=== PATIENT | male | born 1960 | race Caucasian/White ===

== ENCOUNTER 2023-01-07 08:58 | Observation (INO) | payer BC ==
[~2023-01-07] VITALS: Ht 177.8 cm; Wt 80.5 kg
[2023-01-07] VITALS (15 sets, daily range): BP systolic 98–139; BP diastolic 59–87; PULSE 57–87; TEMP 97.6–98.5
[2023-01-07 09:23] LABS: BASO # 0.1 K/mm3 (0.0-0.2); BASO % 1.6 % (0.0-2.0); EOS # 0.2 K/mm3 (0.0-0.7); EOS % 4.3 % (0.0-4.0); GRAN # 2.4 K/mm3 (1.4-6.5); HEMATOCRIT 43.2 % (42.0-52.0); HEMOGLOBIN 14.8 g/dl (13.5-18.0); LYMPH # 1.2 K/mm3 (1.2-3.4); LYMPH % 27.7 % (20.0-51.0); MEAN CELL VOLUME 88 fl (80.0-100.0); MEAN CORPUSCULAR HEMOGLOBIN 30 pg (27-31); MEAN CORPUSCULAR HGB CONC 34 g/dl (33.0-37.0); MEAN PLATELET VOLUME 9.3 fl (7.4-10.4); MONO # 0.6 K/mm3 (0.1-0.6); PLATELET COUNT 240 K/mm3 (130-400); RED BLOOD COUNT 4.89 M/mm3 (4.20-5.60); REDCELL DISTRIBUTION WIDTH-CV 12.6 % (11.5-14.5)
[2023-01-07 09:38] LABS: ALBUMIN 3.5 gm/dL (3.4-4.8); BILIRUBIN,TOTAL 0.4 mg/dL (0.2-1.2); CALCIUM 8.8 mg/dL (8.4-10.2); CREATININE, serum 1.08 mg/dL (0.72-1.25); POTASSIUM 3.9 mmol/L (3.5-4.5); TOTAL PROTEIN 6.8 gm/dL (6.2-8.1)
[2023-01-07 09:51] LABS: TROPONIN-I 0.246 ng/mL (0.00-0.033)
[2023-01-07 10:22] LABS: COLLECTION METHOD CLEAN CATCH
[2023-01-07 10:26] LABS: SQUAMOUS EPITHELIAL None Seen /hpf (0-10); URINE BACTERIA None Seen /hpf (NONE SEEN); URINE RBC 0-2 /hpf (0-2)
[2023-01-07 10:26] LABS: INR 1.1 (0.8-3.0); PROTHROMBIN TIME 12.3 SECONDS (9.7-12.8)
[2023-01-07 10:28] LABS: PARTIAL THROMBOPLASTIN TIME 26.2 SECONDS (26.0-37.0)
[2023-01-07 10:36] LABS: URINE APPEARANCE Clear (CLEAR/HAZY); URINE BLOOD Negative (NEGATIVE); URINE COLOR Yellow (YELLOW); URINE GLUCOSE Negative (NEGATIVE); URINE KETONE Negative (NEGATIVE); URINE NITRATE Negative (NEGATIVE); URINE PROTEIN(semi-quant) Negative (NEGATIVE); URINE UROBILINOGEN 0.2 E.U/dL (0.2-1.0)
--- NOTE | 2023-01-07 11:22 | NUR ---
SEE MERGE FOR ALL INTERVENTIONS, MEDICATIONS, AND VITAL SIGNS. HEPARIN GTT STOPPED PRIOR TO PROCEDURE PER PHYSICIAN ORDER.
[2023-01-07] MEDS ORDERED: COZAAR 25MG25 MG/TAB PO (12:33)
[2023-01-07] MEDS ORDERED: HCTZ12.5TAB PO (12:34)
[2023-01-07] MEDS ORDERED: ALLEGRA 60MG TA60 MG PO (12:35)
--- NOTE | 2023-01-07 12:43 | NUR ---
PATIENT ADMITTED TO ROOM 359 FROM TRAVEL NURSE. PATIENT IS ALERT AND ORIENTED X4. DENIES PAIN. LUNGS CTA. SKIN INTACT. IV TO LEFT AC. RADIAL BAND IN PLACE WITH 15CC OF AIR, RADIAL PULSES PALPABLE, NO BLEEDING NOTED. ORIENTED TO ROOM AND USE OF CALL LIGHT. DENIES NEEDS. CALL LIGHT WITHIN REACH.
[2023-01-07 13:52] LABS: MAGNESIUM 2.1 mg/dL (1.6-2.6)
[2023-01-07 14:13] LABS: TSH w REFLEX 2.505 uIU/mL (0.350-4.940)
--- NOTE | 2023-01-07 17:08 | NUR ---
DR. MORE AWARE OF ELEVATED TROP AND EKG REVIEWED. NO FURTHER ORDERS AT THIS TIME. PATIENT DENIES CHEST PAIN.
--- NOTE | 2023-01-07 18:10 | NUR ---
RADIAL BAND REMOVED, NO BLEEDING NOTED, BANDAID APPLIED. PATIENT IN BED, DENIES NEEDS.
[2023-01-08 03:14] VITALS: BP 97/69; PULSE 52; TEMP 97.8
[2023-01-08 07:16] LABS: CHOLESTEROL RISK RATIO 4.7
[2023-01-08 07:30] LABS: TROPONIN-I 3.153 ng/mL (0.00-0.033)
--- NOTE | 2023-01-08 07:43 | NUR ---
Patient sitting in recliner at this time. 0800 assessment completed. Patient denies pain or discomfort. INT to right hand and Left AC. Call light within reach.
[2023-01-08 07:46] VITALS: BP 140/85; PULSE 60; TEMP 98
--- NOTE | 2023-01-08 09:04 | NUR ---
MARIA C met with the patient to discuss discharge plan. The patient lives in [place] with a housemate, Karis Mock. He reports independence with ADLs and does not have any DME. The patient's PCP is Dr. Mayelin Pierre and he obtains his medications from [facility]. The patient does not have a DPOA-HC, but he was interested in obtaining a form. MARIA C provided. The patient shares that he is not , does not have any children, and his parents are . He has three siblings: Bernard Sotelo (ph#[phone]), Sonali, and Dunia. The patient plans to return home with his housemate upon discharge. No additional needs at this time. *Discharge plan: home with housemate*
--- NOTE | 2023-01-08 09:57 | NUR ---
Initial visit; Patient thanked Nursing Teacher for stopping though declined Spiritual Care. Nursing Teacher wished him well.
[2023-01-08] MEDS ORDERED: LIPITOR 40MG TA40 MG PO (11:44)
[2023-01-08] MEDS ORDERED: ASPIRIN E.C. 8181 MG PO (11:45)
[2023-01-08] MEDS ORDERED: PLAVIX 75MG TAB75 MG PO (11:45)
[2023-01-08] MEDS ORDERED: TOPROL XL 25MG25 MG PO (11:46)
[2023-01-08 11:57] VITALS: BP 132/88; PULSE 67; TEMP 99
--- NOTE | 2023-01-08 13:45 | NUR ---
PATIENT GIVEN DISCARGE INSTRUCTIONS AND EDUCATION. IV AND TELE ALREADY REMOVED. PATIETN VOICES UNDERSTANDING FOR NEW HOME MEDICATIONS/CHANGES AND STOPPPED MEDICATION. POST HEART CATH INSTRUCTIONS GIVEN. PATIENT DENIES ANY QUESTIONS AT THIS TIME. PATIENT AWAITING HIS RIDE.
--- NOTE | 2023-01-08 14:00 | NUR ---
PATIENT TAKEN TO PATIENT ENTRANCE WHERE HE LEFT IN STABLE CONDITION WITH A FAMILY MEMBER/FRIEND.
== END 2023-01-08 14:01 | disposition home or self-care (01) ==
LOC: COL.ER 08:58 → EDBEDREQ 11:37 → MEDICAL 12:15
PROVIDERS: Physician Assistant; ADMIT Internal Medicine
DX: I21.4 Non-ST elevation (NSTEMI) myocardial infarction (principal); I10 Essential (primary) hypertension; E78.5 Hyperlipidemia, unspecified; J30.1 Allergic rhinitis due to pollen; Z79.899 Other long term (current) drug therapy
CPT/HCPCS: G0378; J1644; J1650; J2250; J3010; Q9967

== ENCOUNTER 2023-11-13 17:01 | Inpatient (IN) | payer BC ==
[~2023-11-13] VITALS: Ht 177.8 cm; Wt 65.0 kg
[2023-11-13] VITALS (157 sets, daily range): BP systolic 130–142; BP diastolic 98–103; PULSE 74–75; TEMP 97.6; O2SAT 93–99
[~2023-11-13 17:01] MED LIST: ALLEGRA 60MG TA60 MG PO; ASPIRIN E.C. 8181 MG PO; COZAAR 25MG25 MG/TAB PO; HCTZ12.5TAB PO; LIPITOR 40MG TA40 MG PO; PLAVIX 75MG TAB75 MG PO; TOPROL XL 25MG25 MG PO
[2023-11-13] MEDS ORDERED: Midazolam 2 MG/2 ML VIAL IV ONE (17:08)
[2023-11-13] MEDS ORDERED: Amiodarone 200 MG TAB PO ONE (17:45)
[2023-11-13 18:12] LABS: BASO # 0.1 K/mm3 (0.0-0.2); EOS # 0.2 K/mm3 (0.0-0.7); EOS % 3.6 % (0.0-4.0); GRAN % 63.3 % (42.2-75.2); HEMATOCRIT 44.3 % (42.0-52.0); HEMOGLOBIN 15.2 g/dl (13.5-18.0); LYMPH # 1.5 K/mm3 (1.2-3.4); LYMPH % 23.9 % (20.0-51.0); MEAN CELL VOLUME 88 fl (80.0-100.0); MEAN CORPUSCULAR HEMOGLOBIN 30 pg (27-31); MEAN CORPUSCULAR HGB CONC 34 g/dl (33.0-37.0); MEAN PLATELET VOLUME 8.9 fl (7.4-10.4); MONO # 0.5 K/mm3 (0.1-0.6); MONO % 7.9 % (1.7-9.3); PLATELET COUNT 307 K/mm3 (130-400); RED BLOOD COUNT 5.03 M/mm3 (4.20-5.60); REDCELL DISTRIBUTION WIDTH-CV 12.3 % (11.5-14.5)
[2023-11-13 18:28] LABS: ALBUMIN 3.8 gm/dL (3.4-4.8); BILIRUBIN,TOTAL 0.2 mg/dL (0.2-1.2); CALCIUM 9.3 mg/dL (8.4-10.2); CREATININE, serum 0.97 mg/dL (0.72-1.25); MAGNESIUM 2.3 mg/dL (1.6-2.6); PHOSPHOROUS 3.2 mg/dL (2.3-4.7); POTASSIUM 3.6 mmol/L (3.5-4.5); TOTAL PROTEIN 6.9 gm/dL (6.2-8.1)
[2023-11-13 18:48] LABS: THYROID STIMULATING HORMONE 6.047 uIU/mL (0.350-4.940)
[2023-11-13 18:57] LABS: TROPONIN-I 0.226 ng/mL (0.00-0.033)
[2023-11-13] MEDS ORDERED: CRESTOR 10MG10 MG PO (19:12)
[2023-11-13] MEDS ORDERED: Potassium Bicarbonate/Citrate 20 MEQ Effervescent TAB PO SCH (19:30)
[2023-11-13] MEDS ORDERED: Acetaminophen 325 MG TAB PO PRN (19:30)
[2023-11-13] MEDS ORDERED: *Potassium Replacement Protocol MC SCH (19:30)
[2023-11-13] MEDS ORDERED: COZAAR 50MG50 MG/TAB PO (20:07)
[2023-11-13] MEDS ORDERED: Atorvastatin 20 MG TAB PO SCH (21:00)
[2023-11-13] MEDS ORDERED: Losartan 50 MG TAB PO SCH (21:00)
[2023-11-13] MEDS ORDERED: Rosuvastatin 10 MG **** subs to Atorvastatin 20 MG PO SCH (21:00)
--- NOTE | 2023-11-13 22:42 | NUR ---
PT WAS ADMITTED TO ICU 5 AT 2021. PT ARRIVED BY WHEELCHAIR ACCOMPANIED BY STAFF. PT AMBULATED TO BED. VITAL SIGNS STABLE PT DENIES CHEST PAIN, SHORTNESS OF BREATH. RESPIRATIONS EVEN AND UNLABORED. NO SIGN OF DISTRESS AT THIS TIME.
[2023-11-13 23:16] LABS: TRICYCLIC ANTIDEPRESS URINE NEGATIVE (NEGATIVE)
[2023-11-14] VITALS (419 sets, daily range): BP systolic 92–103; BP diastolic 52–65; PULSE 56–68; TEMP 97.8–97.9; O2SAT 84–100
[2023-11-14 04:43] LABS: BASO # 0.1 K/mm3 (0.0-0.2); EOS # 0.3 K/mm3 (0.0-0.7); EOS % 4.3 % (0.0-4.0); GRAN # 3.3 K/mm3 (1.4-6.5); GRAN % 57.6 % (42.2-75.2); HEMATOCRIT 39.4 % (42.0-52.0); HEMOGLOBIN 13.5 g/dl (13.5-18.0); LYMPH # 1.5 K/mm3 (1.2-3.4); MEAN CELL VOLUME 88 fl (80.0-100.0); MEAN CORPUSCULAR HEMOGLOBIN 30 pg (27-31); MEAN CORPUSCULAR HGB CONC 34 g/dl (33.0-37.0); MEAN PLATELET VOLUME 9.1 fl (7.4-10.4); MONO # 0.6 K/mm3 (0.1-0.6); MONO % 10.9 % (1.7-9.3); PLATELET COUNT 285 K/mm3 (130-400); RED BLOOD COUNT 4.48 M/mm3 (4.20-5.60); REDCELL DISTRIBUTION WIDTH-CV 12.3 % (11.5-14.5)
[2023-11-14 05:23] LABS: CHOLESTEROL RISK RATIO 2.8
[2023-11-14 05:54] LABS: CALCIUM 8.6 mg/dL (8.4-10.2); CREATININE, serum 0.87 mg/dL (0.72-1.25)
--- NOTE | 2023-11-14 07:15 | NUR ---
Pt called out electronic industrial controls mechanic light and stated he could feel heart palpations again. Pt was in vtach in the 200s. Pt was sitting up and alert at this time. Notified Dr. Malone in the ER as well as Dr Deyanira Malone. Pads attached to patient. Orders to give 2mg of versed and charge defibrillator to 120J and to deliver shock. Pt converted back to sinus rhythm. Pt remains alert and oriented after shock. Vital signs are stable. Amio gtt started per Dr. Deyanira Malone orders.
[2023-11-14] MEDS ORDERED: Amiodarone 450 MG in D5W Excel 250 ML IV SCH ×2 (07:45→13:41)
[2023-11-14] MEDS ORDERED: Midazolam 2 MG/2 ML VIAL IV ONE ×2 (07:45→08:45)
--- NOTE | 2023-11-14 08:20 | NUR ---
At 0815 pt went back into vtach. Pt remains alert and oriented during vtach. Rate in the 180s. Notified Dr. Diez at 0816. Pt attached to pads and defibillator again. When Dr. Diez arrvied to room, 2 mg of versed given again and pt shocked at 120J again and converted to normal sinus rhythm again. Dr. Diez states she has plans to transfer patient.
[2023-11-14] MEDS ORDERED: NS 1,000 ML IV SCH (08:45)
[2023-11-14] MEDS ORDERED: NS 500 ML IV ONE (08:45)
[2023-11-14] MEDS ORDERED: Amiodarone 200 MG TAB PO SCH (09:00)
[2023-11-14] MEDS ORDERED: Clopidogrel 75 MG TAB PO SCH ×2 (09:00)
--- NOTE | 2023-11-14 10:00 | NUR ---
[facility] at 0928 as EMS was arriving. All questions answered and phone number to call if more questions provided. Pt transferred to EMS stretcher and attached to their monitors. Report given to EMS. Pt friend brought belongings for patient and given to pt and EMS. EMS left floor at 0955.
[2023-11-21] MEDS ORDERED: Amiodarone 200 MG TAB PO SCH (09:00)
[2023-11-28] MEDS ORDERED: Amiodarone 200 MG TAB PO SCH (09:00)
== END 2023-11-14 09:55 | disposition short-term general hospital (02) | DRG 310 ==
LOC: COL.ER 17:01 → ICU 19:22
PROVIDERS: Emergency Medicine; Nurse Practitioner Family; ADMIT Internal Medicine
PROC: 5A2204Z Restoration of Cardiac Rhythm, Single (ICD-10-PCS; principal; 2023-11-13)
DX: I47.20 Ventricular tachycardia, unspecified (principal); I10 Essential (primary) hypertension; R79.89 Other specified abnormal findings of blood chemistry; E78.5 Hyperlipidemia, unspecified; E87.6 Hypokalemia; I45.10 Unspecified right bundle-branch block; Z66 Do not resuscitate; I95.9 Hypotension, unspecified; E03.8 Other specified hypothyroidism; I25.2 Old myocardial infarction; Z79.82 Long term (current) use of aspirin; Z79.899 Other long term (current) drug therapy; Z79.02 Long term (current) use of antithrombotics/antiplatelets; Z23 Encounter for immunization
CPT/HCPCS: J0282; J1650; J2250; J7030; J7040; J7060